=== PATIENT | male | born 1990 | race African-American/Black ===

== ENCOUNTER 2016-05-13 11:04 | Emergency (ER) | payer SELFPAY ==
[~2016-05-13] VITALS: Ht 175.3 cm; Wt 86.2 kg
[~2016-05-13 11:04] MED LIST: FLUT9.9S NS
[2016-05-13 11:12] VITALS: BP 144/79
--- NOTE | 2016-05-13 12:18 | PHYS DOC ---
Past Medical History Past Medical History: No Pertinent History Past Surgical History: No Surgical History Additional Information: 1/2-1 PACK PER DAY Alcohol Use: None Drug Use: None Adult General Chief Complaint Chief Complaint: BACK PAIN - NO INJURY [facility] HPI Patient is a 26 year old male presents emergency Department telling the nursing staff that he's had back pain for the last month. He states to the provider he has had pain for the last week that has been increased. Patient denies taking anything for the pain and discomfort. 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 He denies any loss of bowel or bladder. He denies any numbness or tingling down to his lower extremities. He states that he is also having some left flank pain and right flank pain. He denies any blood being in his urine. Patient does have a history of smoking. He denies any further symptoms at this time. Review of Systems Review of Systems Constitutional: Denies fever or chills [] Eyes: Denies change in visual acuity, redness, or eye pain [] HENT: Denies nasal congestion or sore throat [] Respiratory: Denies cough or shortness of breath [] Cardiovascular: No additional information not addressed in HPI [] GI: Denies abdominal pain, nausea, vomiting, bloody stools or diarrhea [] : Denies dysuria or hematuria [] Musculoskeletal: c/o lower back pain Integument: Denies rash or skin lesions [] Neurologic: Denies headache, focal weakness or sensory changes [] Allergies Allergies Allergies Coded Allergies Type Severity Reaction Last Updated Verified amoxicillin Allergy Intermediate Hives 05/13/16 Yes Physical Exam Physical Exam Constitutional: Well developed, well nourished, no acute distress, non-toxic appearance. [] HENT: Normocephalic, atraumatic, bilateral external ears normal, oropharynx moist, no oral exudates, nose normal. [] Eyes: PERRLA, EOMI, conjunctiva normal, no discharge. [] Neck: Normal range of motion, no tenderness, supple, no stridor. [] Cardiovascular:Heart rate regular rhythm, no murmur [] Lungs & Thorax: Bilateral breath sounds clear to auscultation [] Skin: Warm, dry, no erythema, no rash. [] Back: No thoracic, lumbar spine tenderness, no step-offs no deformities and no crepitus noted. Bilateral CVA tenderness. [] Extremities: No tenderness, no cyanosis, no clubbing, ROM intact, no edema. [] Neurologic: Alert and oriented X 3, normal motor function, normal sensory function, no focal deficits noted. [] Psychologic: Affect normal, judgement normal, mood normal. 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 PHYSICIAN: SHIRA REES NP REASON: flank pain with hematuria PROCEDURE: ABDOMEN PELVIS WO CONTRAST CT abdomen and pelvis without contrast History: Left flank pain with hematuria for one week. Comparison: None. Technique: Helical CT of the abdomen and pelvis was performed without intravenous or oral contrast. Axial, sagittal, and coronal reconstructions were obtained. One or more of the following individualized dose reduction techniques were utilized for the study: Automated exposure control Adjustment of mA and/or kV according to patient's size Use of iterative reconstruction technique. Findings: Evaluation of the solid organs is limited by lack of intravenous contrast. Evaluation of enteric structures may be limited by lack of oral contrast. Liver, spleen, pancreas, gallbladder, and bilateral adrenal glands are unremarkable. There is no evidence of bowel obstruction. No free air or free fluid is identified in the abdomen or pelvis. Appendix appears within normal limits. Urinary bladder is unremarkable. Bilateral kidneys and ureters are free of stone or obstruction. Impression: No acute abnormality identified in the abdomen or pelvis. No evidence of urinary stone. DICTATED and SIGNED BY: ARAM SLAUGHTER MD DATE: 05/13/16 1251 CC: SHIRA REES HEARING AID ASSISTANT; NO PCP ~ Course & Med Decision Making Course & Med Decision Making Pertinent Labs and Imaging studies reviewed. (See chart for details) Urine dip was positive for blood. CT scan pending for abdominal and pelvis area. CT scan was negative. Patient did have blood in it your with protein. Since patient does have blood in his urine with slight pain patient will be placed on Cipro. Patient will be discharged home with recommendations to drink plenty of fluids recommendations to follow-up with his primary care physician for repeat urine dip monitoring for blood. We'll encourage patient to use Tylenol for pain and discomfort will add some prednisone to avoid ibuprofen usage due to being in the urine. Also recommended ice packs to the back area for discomfort. Signs and symptoms to return back to emergency department provided. Patient agrees with discharge instructions treatment regimens and follow-up recommendations. [] Dragon Disclaimer Dragon Disclaimer This electronic medical record was generated, in whole or in part, using a voice recognition dictation system. Departure Departure Impression: Primary Impression: Back pain Additional Impression: Hematuria Disposition: HOME, SELF-CARE Condition: STABLE Referrals: NO PCP (PCP) Patient Instructions: Back Pain, Adult, [id number], Hematuria-Brief Additional Instructions: Activity as tolerated. Tylenol for pain and discomfort. Medications prescribed. Ice packs on 20 minutes off 20 minutes several times a day. Follow-up with your primary care physician in the next 5-7 days to have a urine repeat area did this is to follow up and make sure there is no continuation of blood being in your urine. Return back to emergency department sign symptoms of become worse. Scripts Ciprofloxacin Hcl (Cipro)500 Mg Tablet1 Tab PO BID #14 TAB Prov:SHIRA REES NP 05/13/16 Prednisone 20 Mg Wezaid58 Mg PO DAILY #10 TAB Prov:SHIRA REES HEARING AID ASSISTANT 05/13/16 Problem Qualifiers SHIRA REES NP May 13, 2016 12:18
--- NOTE | 2016-05-13 12:57 | RAD ---
CT abdomen and pelvis without contrast History: Left flank pain with hematuria for one week. Comparison: None. Technique: Helical CT of the abdomen and pelvis was performed without intravenous or oral contrast. Axial, sagittal, and coronal reconstructions were obtained. One or more of the following individualized dose reduction techniques were utilized for the study: Automated exposure control Adjustment of mA and/or kV according to patient's size Use of iterative reconstruction technique. Findings: Evaluation of the solid organs is limited by lack of intravenous contrast. Evaluation of enteric structures may be limited by lack of oral contrast. Liver, spleen, pancreas, gallbladder, and bilateral adrenal glands are unremarkable. There is no evidence of bowel obstruction. No free air or free fluid is identified in the abdomen or pelvis. Appendix appears within normal limits. Urinary bladder is unremarkable. Bilateral kidneys and ureters are free of stone or obstruction. Impression: No acute abnormality identified in the abdomen or pelvis. No evidence of urinary stone.
[2016-05-13] MEDS ORDERED: PRED20TA PO (13:10)
[2016-05-13] MEDS ORDERED: CIPR500T94 PO (13:10)
== END 2016-05-13 13:13 | disposition home or self-care (01) ==
LOC: ER 11:04
DX: R31.9 Hematuria, unspecified (principal); M54.5 Low back pain; R10.9 Unspecified abdominal pain; Z87.891 Personal history of nicotine dependence; Z88.6 Allergy status to analgesic agent
CPT/HCPCS: 74176; 87491; 87591; 99285-25

== ENCOUNTER 2017-06-24 10:58 | Emergency (ER) | payer SELFPAY ==
[2017-06-24] MEDS: DIPHTH,PERTUSS(ACELL),TET TOX 0.5 ML DISP.SYRIN. VAX IM (12:11)
== END 2017-06-24 12:45 | disposition home or self-care (01) ==
LOC: ER 10:58
DX: S61.011A Laceration without foreign body of right thumb without damage to nail, initial encounter (principal); Z88.1 Allergy status to other antibiotic agents; Y28.8XXA Contact with other sharp object, undetermined intent, initial encounter; Y93.89 Activity, other specified; Y99.8 Other external cause status; Y92.89 Other specified places as the place of occurrence of the external cause
CPT/HCPCS: 90471; 90715; 99283-25